=== PATIENT | female | born 1960 | race American Indian/Alaskan Native ===

== ENCOUNTER 2016-03-29 16:52 | Emergency (ER) | payer MEDICAID, OTHER ==
[2016-03-29 18:24] VITALS: BP 122/91
[2016-03-29 19:27] LABS: Basophils % (Auto) 0.6 % (0.0-1.8); Eosinophils % (Auto) 0.1 % (0.0-4.3); Hematocrit 41.9 % (30.3-42.9); Hemoglobin 14.2 gm/dl (10.1-14.3); Mean Corpuscular HGB Conc 34 % (30-34); Mean Corpuscular Hemoglobin 30 pg (28-32); Mean Corpuscular Volume 88 fl (79-97); Platelet Count 192 K/mm3 (140-440); Red Blood Count 4.76 M/mm3 (3.65-5.03); Red Cell Distribution Width 13.4 % (13.2-15.2); White Blood Count 6.3 K/mm3 (4.5-11.0)
[2016-03-29 19:38] LABS: Anion Gap 20 mmol/L; Blood Urea Nitrogen 10 mg/dL (7-17); Calcium 8.9 mg/dL (8.4-10.2); Carbon Dioxide 26 mmol/L (22-30); Chloride 97.9 mmol/L (98-107); Glucose 100 mg/dL (65-100); Potassium 3.4 mmol/L (3.6-5.0); Sodium 140 mmol/L (137-145)
--- NOTE | 2016-03-30 07:03 | ED Elopement Review ---
ED Pt Elopement review - Results review Lab results: Laboratory Tests 03/29/16 03/29/16 19:00 19:00 WBC 6.3 RBC 4.76 Hgb 14.2 Hct 41.9 MCV 88 MCH 30 MCHC 34 RDW 13.4 Plt Count 192 Lymph % (Auto) 17.5 Millard % (Auto) 14.0 H Eos % (Auto) 0.1 Baso % (Auto) 0.6 Lymph # 1.1 L Millard # 0.9 H Eos # 0.0 Baso # 0.0 Seg Neutrophils % 67.8 Seg Neutrophils # 4.3 Sodium 140 Potassium 3.4 L Chloride 97.9 L Carbon Dioxide 26 Anion Gap 20 BUN 10 Creatinine 0.5 L Estimated GFR > 60 BUN/Creatinine Ratio 20.00 Glucose 100 Calcium 8.9 Troponin T < 0.010 - Call Back decision Pt Call Back Decision: No action required
--- NOTE | 2016-03-30 08:04 | XRay Report ---
ROUTINE CHEST, TWO VIEWS: HISTORY: Shortness of breath. The trachea, heart, mediastinal contour, lung inman and bony thorax are unremarkable. IMPRESSION: Unremarkable chest x-ray.
== END 2016-03-29 21:22 | disposition left against medical advice (07) ==
LOC: ED 16:52
DX: R07.89 Other chest pain (principal); Z53.21 Procedure and treatment not carried out due to patient leaving prior to being seen by health care provider
CPT/HCPCS: 36415; 71020; 80048; 84484; 85025; 93005; 93010